=== PATIENT | male | born 1960 | race African-American/Black ===

== ENCOUNTER 2022-12-12 21:14 | Emergency (ER) | payer OTHER, MEDICAID ==
[2022-12-12] MEDS ORDERED: Acetaminophen 500 MG TAB ONE (22:40)
[2022-12-12] MEDS ORDERED: predniSONE 20 MG TAB ONE (22:40)
[2022-12-12] MEDS ORDERED: Ketorolac Tromethamine 30 MG/ML VIAL ONE (22:40)
== END 2022-12-12 23:02 | disposition home or self-care (01) ==
LOC: ERS 21:14
DX: M79.641 Pain in right hand (principal); W29 Contact with other powered hand tools and household machinery
CPT/HCPCS: 96372; J1885; J7512

== ENCOUNTER 2023-06-04 20:25 | Emergency (ER) | payer MEDICAID, OTHER ==
[2023-06-04] MEDS ORDERED: Ketorolac Tromethamine 30 MG/ML VIAL ONE (22:05)
[2023-06-04] MEDS ORDERED: Ibuprofen 800 MG TAB ONE (22:17)
== END 2023-06-04 22:23 | disposition home or self-care (01) ==
LOC: ERS 20:25
DX: M79.641 Pain in right hand (principal); I10 Essential (primary) hypertension
CPT/HCPCS: J1885

== ENCOUNTER 2023-11-03 21:47 | Emergency (ER) | payer OTHER | END 2023-11-03 23:57 | disposition home or self-care (01) | LOC: ERS 21:47 | DX: L72.3 Sebaceous cyst (principal); I10 Essential (primary) hypertension | CPT/HCPCS: 99283 ==

== ENCOUNTER 2023-11-15 08:45 | Emergency (ER) | payer OTHER ==
[2023-11-15] MEDS ORDERED: Lidocaine 1% PF 5 ML VIAL ONE (09:39)
== END 2023-11-15 10:07 | disposition home or self-care (01) ==
LOC: ERS 08:45
DX: L02.213 Cutaneous abscess of chest wall (principal); I10 Essential (primary) hypertension
CPT/HCPCS: 36416; 99283

== ENCOUNTER 2025-10-05 22:51 | Emergency (ER) | payer MEDICAID, OTHER | END 2025-10-05 23:50 | disposition home or self-care (01) | LOC: ERS 22:51 | DX: M54.32 Sciatica, left side (principal) | CPT/HCPCS: 96372; 99282 ==